=== PATIENT | female | born 1970 | race Hispanic/Latino ===

== ENCOUNTER 2019-03-31 20:36 | Inpatient (IN) | payer OTHER ==
[~2019-03-31] VITALS: Ht 165.1 cm; Wt 58.5 kg
[2019-03-31] MEDS ORDERED: ONDANSETRON HCL 4 MG/2 ML VIAL ONE (20:59)
[2019-03-31] MEDS ORDERED: MORPHINE SULFATE 4 MG/1ML SYG ONE (21:00)
[2019-03-31] MEDS ORDERED: SODIUM CHLORIDE 0.9% 1000ML 1,000 ML IV ONE (21:10)
[2019-03-31 21:15] LABS: BASOPHILS % (AUTO) 0.2 % (0.0-5.0); EOSINOPHILS % (AUTO) 0.7 % (0.0-8.0); HEMATOCRIT 38.3 % (36-48); LYMPHOCYTES % (AUTO) 21.6 % (21.0-51.0); MEAN CORPUSCULAR HEMOGLOBIN 31.9 pg (27.0-33.0); MEAN CORPUSCULAR HGB CONC 34.9 g/dL (32.0-36.0); MEAN CORPUSCULAR VOLUME 91.3 fL (79-99); MONOCYTES % (AUTO) 4.4 % (3.0-13.0); NEUTROPHILS % (AUTO) 73.1 % (40.0-77.0); NUCLEATED RED BLOOD CELLS 0.1 % (0.0-0.19); PLATELET COUNT (AUTO) 181 K/uL (130-400); RED CELL DISTRIBUTION WIDTH 13.4 % (11.0-15.5)
[2019-03-31 21:48] LABS: CREATININE 0.9 mg/dL (0.5-1.5); POTASSIUM 3.5 mmol/L (3.5-5.1)
[2019-03-31] MEDS ORDERED: IOHEXOL 350 MG/ML 100ML INFUS..BTL IV ONE (21:55)
[2019-03-31 22:02] LABS: ALBUMIN 3.5 g/dL (3.5-5.0); BILIRUBIN,TOTAL 0.3 mg/dL (0.2-1.0); TOTAL PROTEIN, SERUM 6.8 g/dL (6.0-8.3)
[2019-04-01 00:09] LABS: INR 0.95 (0.85-1.15); PARTIAL THROMBOPLASTIN TIME 24.2 SEC (26.3-35.5)
--- NOTE | 2019-04-01 01:00 | NUR ---
REPORT RECEIVED BY MINERVA DAMIAN.
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
[2019-04-01] MEDS: MORPHINE SULFATE 4 MG/1ML SYG IVP PRN ×2 (01:40→13:46)
[2019-04-01] MEDS ORDERED: ONDANSETRON HCL 4 MG/2 ML VIAL IVP PRN (01:45)
[2019-04-01 04:00] VITALS: BP 115/64
[2019-04-01 04:17] LABS: HEMATOCRIT 35.8 % (36-48); MEAN CORPUSCULAR HEMOGLOBIN 31.5 pg (27.0-33.0); MEAN CORPUSCULAR HGB CONC 34.4 g/dL (32.0-36.0); MEAN CORPUSCULAR VOLUME 91.5 fL (79-99); PLATELET COUNT (AUTO) 177 K/uL (130-400); RED BLOOD CELL COUNT(AUTO) 3.91 MIL/uL (4.00-5.50); RED CELL DISTRIBUTION WIDTH 13.2 % (11.0-15.5); WHITE BLOOD COUNT (AUTO) 8.4 K/uL (4.8-10.8)
[2019-04-01 04:35] LABS: ALBUMIN 3.3 g/dL (3.5-5.0); BILIRUBIN,TOTAL 0.4 mg/dL (0.2-1.0); CREATININE 0.8 mg/dL (0.5-1.5); POTASSIUM 4.1 mmol/L (3.5-5.1); TOTAL PROTEIN, SERUM 6.5 g/dL (6.0-8.3)
[2019-04-01 07:00] VITALS: BP 96/59
[2019-04-01] MEDS: LIDOCAINE 5% TOPICAL PATCH TP SCH (08:20)
[2019-04-01 11:00] VITALS: BP 95/57
--- NOTE | 2019-04-01 12:00 | NUR ---
INITIAL: Met with pt this afternoon to discuss dcp. Pt states that her dtr lives w her and her 2month old granddtr. Per pt prior to admission she was independent w ambulation and ADLs. Pt does not own any DME or receive services. Per pt she seeks medical care @ [facility] and uses their pharmacy for prescriptions. Pt states that she plans to return home. Discussed w pt regarding poss needing assistance at home once discharged as her dtr works. CM to continue to follow and wait for Md recommendations. Addendum: 04/01/19 at 1633 by ROYAL AVALOS Amended: Links added.
[2019-04-01 16:06] VITALS: BP 98/60
[2019-04-01] MEDS: LACTATED RINGERS 1000ML 1,000 ML IV SCH (16:19)
[2019-04-01 19:49] VITALS: BP 104/63
[2019-04-01] MEDS: ACETAMINOPHEN-CODEINE 300/30MG TAB PO PRN (20:01)
[2019-04-02] VITALS (7 sets, daily range): BP systolic 105–143; BP diastolic 66–84
--- NOTE | 2019-04-02 | NUR ---
PT HAS BEEN STABLE. CONTINUES WITH PAIN. TYLENOL #3 GIVEN PRN NEEDED. IS ABLE TO MOVE AROUND MORE WHEN MEDICATED. NOT ABLE TO GET OUT OF BED. REQUIRES ASSISTANCE.
[2019-04-02] MEDS: LACTATED RINGERS 1000ML 1,000 ML IV SCH ×4 (02:00→21:42)
[2019-04-02 03:29] LABS: HEMATOCRIT 33.7 % (36-48); MEAN CORPUSCULAR HEMOGLOBIN 32.6 pg (27.0-33.0); MEAN CORPUSCULAR HGB CONC 35.3 g/dL (32.0-36.0); MEAN CORPUSCULAR VOLUME 92.4 fL (79-99); NUCLEATED RED BLOOD CELLS 0.1 % (0.0-0.19); PLATELET COUNT (AUTO) 138 K/uL (130-400); RED BLOOD CELL COUNT(AUTO) 3.65 MIL/uL (4.00-5.50); RED CELL DISTRIBUTION WIDTH 13.2 % (11.0-15.5); WHITE BLOOD COUNT (AUTO) 4.8 K/uL (4.8-10.8)
[2019-04-02 04:01] LABS: ALBUMIN 2.8 g/dL (3.5-5.0); BILIRUBIN,TOTAL 0.7 mg/dL (0.2-1.0); CREATININE 0.5 mg/dL (0.5-1.5); POTASSIUM 3.5 mmol/L (3.5-5.1); TOTAL PROTEIN, SERUM 5.7 g/dL (6.0-8.3)
[2019-04-02] MEDS: ACETAMINOPHEN-CODEINE 300/30MG TAB PO PRN ×3 (04:07→18:45)
[2019-04-02] MEDS: LIDOCAINE 5% TOPICAL PATCH TP SCH (11:08)
[2019-04-03] MEDS: ACETAMINOPHEN-CODEINE 300/30MG TAB PO PRN ×2 (03:18→13:50)
[2019-04-03 04:01] VITALS: BP 149/75
[2019-04-03 07:30] VITALS: BP 144/62
[2019-04-03] MEDS: LACTATED RINGERS 1000ML 1,000 ML IV SCH ×2 (07:45→15:47)
[2019-04-03] MEDS: LIDOCAINE 5% TOPICAL PATCH TP SCH (09:07)
[2019-04-03 11:58] VITALS: BP 137/81
--- NOTE | 2019-04-03 12:20 | NUR ---
ЮЛИЯ COLON, IN ROOM SPEAKING WITH PT. RE:IMPORTANCE OF AMBULATION AND ACTIVITY WELL IS USE; PT. VERBALIZED UNDERSTANDING.
[2019-04-03 15:55] VITALS: BP 129/77
--- NOTE | 2019-04-03 17:01 | NUR ---
CXR REPORT TO PA. ISAIAH ORDER RECEIVED. Addendum: 04/03/19 at 1703 by [place] GOLD RN RN P.A. STATES WILL NOTIFY DR. PRADO OF FINDINGS.
[2019-04-03 19:20] VITALS: BP 143/82
[2019-04-03 23:55] VITALS: BP 138/87
[2019-04-04 03:48] VITALS: BP 135/90
[2019-04-04 06:09] LABS: HEMATOCRIT 35.4 % (36-48); MEAN CORPUSCULAR HEMOGLOBIN 32.2 pg (27.0-33.0); MEAN CORPUSCULAR HGB CONC 35.3 g/dL (32.0-36.0); MEAN CORPUSCULAR VOLUME 91.2 fL (79-99); NUCLEATED RED BLOOD CELLS 0.1 % (0.0-0.19); PLATELET COUNT (AUTO) 153 K/uL (130-400); RED BLOOD CELL COUNT(AUTO) 3.88 MIL/uL (4.00-5.50); RED CELL DISTRIBUTION WIDTH 12.9 % (11.0-15.5); WHITE BLOOD COUNT (AUTO) 4.7 K/uL (4.8-10.8)
[2019-04-04 06:27] LABS: CREATININE 0.5 mg/dL (0.5-1.5); MAGNESIUM 1.8 mg/dL (1.80-2.40); POTASSIUM 3.4 mmol/L (3.5-5.1)
[2019-04-04 07:00] VITALS: BP 131/77
[2019-04-04] MEDS: LIDOCAINE 5% TOPICAL PATCH TP SCH (08:59)
[2019-04-04] MEDS: LACTATED RINGERS 1000ML 1,000 ML IV SCH ×3 (09:36→21:32)
[2019-04-04 11:00] VITALS: BP 121/80
[2019-04-04] MEDS: ACETAMINOPHEN-CODEINE 300/30MG TAB PO PRN (12:58)
[2019-04-04 16:00] VITALS: BP 123/78
[2019-04-04] MEDS: MORPHINE SULFATE 4 MG/1ML SYG IVP PRN (16:01)
[2019-04-04] MEDS ORDERED: KETOROLAC TROMETHAMINE 30MG/ML IV PRN (17:45)
[2019-04-04 19:12] VITALS: BP 136/81
--- NOTE | 2019-04-04 20:51 | NUR ---
ASSESSMENT PT RESTING IN BED. PT AAOX4. PT ORIENTED TO [place]. ASSESSMENT COMPLETED, SEE FLOW SHEET.
--- NOTE | 2019-04-04 21:35 | NUR ---
REMOVAL OF PATCH LIDOCAINE PATCH REMOVED
[2019-04-04 23:09] VITALS: BP 120/77
--- NOTE | 2019-04-05 00:02 | NUR ---
REPORT REPORT GIVEN TO ART RN.
[2019-04-05 03:01] VITALS: BP 124/70
[2019-04-05 03:38] LABS: HEMATOCRIT 34.1 % (36-48); MEAN CORPUSCULAR HEMOGLOBIN 31.1 pg (27.0-33.0); MEAN CORPUSCULAR HGB CONC 34.4 g/dL (32.0-36.0); MEAN CORPUSCULAR VOLUME 90.5 fL (79-99); PLATELET COUNT (AUTO) 156 K/uL (130-400); RED BLOOD CELL COUNT(AUTO) 3.77 MIL/uL (4.00-5.50); RED CELL DISTRIBUTION WIDTH 13.1 % (11.0-15.5); WHITE BLOOD COUNT (AUTO) 5.5 K/uL (4.8-10.8)
[2019-04-05] MEDS: LACTATED RINGERS 1000ML 1,000 ML IV SCH ×2 (06:01→15:45)
[2019-04-05] MEDS: ACETAMINOPHEN-CODEINE 300/30MG TAB PO PRN (06:58)
[2019-04-05 07:00] VITALS: BP 110/68
[2019-04-05] MEDS: LIDOCAINE 5% TOPICAL PATCH TP SCH (09:21)
[2019-04-05 11:00] VITALS: BP 103/66
[2019-04-05] MEDS ORDERED: ACET1TAB25 PO (16:31)
== END 2019-04-05 17:00 | disposition home or self-care (01) | DRG 185 ==
LOC: EDH 20:36 → OBSVTOIN 20:37 → EDHIP 20:37 → UNDOADMOB 23:30 → EDHIP 23:30 → 2DH 04-01 01:23
PROVIDERS: ADMIT Student in an Organized Health Care Education/Training Program; ATTEND Student in an Organized Health Care Education/Training Program
DX: S22.42XA Multiple fractures of ribs, left side, initial encounter for closed fracture (principal); V89.2XXA Person injured in unspecified motor-vehicle accident, traffic, initial encounter; Y92.410 Unspecified street and highway as the place of occurrence of the external cause; Y93.89 Activity, other specified; Y99.8 Other external cause status
CPT/HCPCS: 36415; 71045; 71260; 72170; 74177; 80048; 80053; 82550; 83735; 84484; 85025; 85027; 85610; 85730; 86850; 86900; 86901; 93005; 94760; 97039; 99291; A4606; G0378; G0390; J2270; J2405; J7030; J7120; Q9967